=== PATIENT | female | born 1960 | race Caucasian/White ===

== ENCOUNTER → 2016-11-01 | Outpatient (CLI) | payer OTHER ==
--- NOTE | 2016-11-01 11:10 | RADIOLOGY REPORT PS360 ---
CHEST(2 VIEWS-NOT PORTABLE) HISTORY: BRONCHITIS COMPARISON: 03/04/2011 FINDINGS: The cardiomediastinal silhouette and pulmonary vascularity are within normal limits. Increased density is present in the right upper lobe posteriorly consistent with pneumonia. There is patchy density in the left lung base as well consistent with atelectasis or pneumonia. No effusions.. The change change mid thoracic spine. IMPRESSION: Right upper lobe pneumonia with left lower lobe pneumonia or atelectatic change. Suggest follow until clear
== END ==
LOC: RAD 10:54
DX: J40 Bronchitis, not specified as acute or chronic (principal)